=== PATIENT | female | born 1935 | race Caucasian/White ===

== ENCOUNTER 2016-04-28 11:43 | Outpatient (CLI) ==
[2016-04-28 12:43] LABS: ERYTHROCYTE SEDIMENTATION RATE 24 mm/hr (0-20); ESR INTERNAL QC INTERNAL QC VALID
[2016-04-29 07:18] LABS: RHEUMATOID ARTHRITIS FACTOR < 10.0 IU/mL (0.0-13.9)
[2016-04-29 08:35] LABS: C-REACTIVE PROTEIN 2.4 mg/L (0.0-4.9)
== END 2016-04-28 11:44 | disposition home or self-care (01) ==
LOC: LAB 11:43
PROVIDERS: ATTEND Family Medicine
DX: M25.531 Pain in right wrist (principal)
CPT/HCPCS: 36415; 85651; 86140; 86430

== ENCOUNTER 2017-05-06 09:43 | Outpatient (CLI) ==
--- NOTE | 2017-05-06 11:35 | US ---
EXAM: Thyroid ultrasound History: Low thyroid stimulating hormone Technique: Multiple sonographic images through the thyroid gland were obtained. Color duplex Dopple r was used to interrogate vascular flow. Findings: The right lobe of the thyroid measures 3.7 cm x 1.4 cm x 1.3 cm and demonstrates multiple sub-centime ter nodules with the largest measuring 4 mm. The thyroid isthmus measures 0.3 cm in thickness. The left lobe of the thyroid measures 4.4 cm x 1.5 cm x 1.1 cm and demonstrates multiple nodules with the largest being solid and measuring 1.2 cm and may contain microcalcification. No extrathyroidal masses are identified. The thyroid gland is not significantly hypervascular. Impression: Multinodular thyroid gland with dominant 1.2 cm solid nodule in the left thyroid lobe th at may contain microcalcifications. Tissue sampling is recommended if not recently performed.
== END 2017-05-06 09:44 | disposition home or self-care (01) ==
LOC: RAD 09:43
PROVIDERS: ATTEND Family Medicine
DX: R94.6 Abnormal results of thyroid function studies (principal)

== ENCOUNTER 2017-08-04 14:33 | Outpatient (CLI) | payer OTHER ==
--- NOTE | 2017-08-04 15:07 | DI ---
EXAM: Radiographs, right ankle HISTORY: Right ankle pain and swelling. COMPARISON: None available. TECHNIQUE: Three views. FINDINGS: The bones are demineralized. No fracture or dislocation detected. Ankle joint is intact. There is mild spurring along the dorsal aspect of the joints of the midfoot. No localized soft tis jojo abnormality identified. IMPRESSION: No acute abnormality of the right ankle.
--- NOTE | 2017-08-04 15:07 | DI ---
EXAM: Right great toe three views HISTORY: Pain after injury FINDINGS: Trabecular markings are accentuated consistent with diffuse demineralization. There is mod erate hallux valgus suggested. Moderate osteoarthritis of the first metatarsophalangeal joint. No d isplaced fracture or joint dislocation is identified. IMPRESSION: No fracture or dislocation.
== END 2017-08-04 14:34 | disposition home or self-care (01) ==
LOC: RAD 14:33
PROVIDERS: ATTEND Family Medicine
DX: S99.911A Unspecified injury of right ankle, initial encounter (principal); S99.921A Unspecified injury of right foot, initial encounter

== ENCOUNTER 2018-01-17 14:16 | Outpatient (CLI) | END 2018-01-17 14:17 | disposition home or self-care (01) | LOC: CAR 14:16 | PROVIDERS: ATTEND Family Medicine | DX: G47.33 Obstructive sleep apnea (adult) (pediatric) (principal) | CPT/HCPCS: 95810 ==

== ENCOUNTER 2018-06-12 13:44 | Outpatient (CLI) | END 2018-06-12 13:45 | disposition home or self-care (01) | LOC: LAB 13:44 | PROVIDERS: ATTEND Otolaryngology | DX: E03.9 Hypothyroidism, unspecified (principal); E04.2 Nontoxic multinodular goiter | CPT/HCPCS: 36415; 84443 ==

== ENCOUNTER 2018-06-28 08:10 | Outpatient (CLI) | payer OTHER ==
--- NOTE | 2018-06-28 10:00 | DI ---
EXAM: Upper GI series HISTORY: Hernia COMPARISON: None FINDINGS: Upper GI series was performed using barium. Esophageal motility is normal. Esophageal dana leo is normal. No filling defect is seen in the esophagus. Small hiatal hernia. Small amount of stasi s was noted in the esophagus The stomach appears grossly normal without mass lesion or ulcer. Small d uodenal diverticulum suggested. IMPRESSION: 1. Small hiatal hernia. 2. Small amount of stasis noted in the esophagus. 3. Small duodenal diverticulum suggested.
== END 2018-06-28 08:11 | disposition home or self-care (01) ==
LOC: RAD 08:10
PROVIDERS: ATTEND Family Medicine
DX: K44.9 Diaphragmatic hernia without obstruction or gangrene (principal)